=== PATIENT | female | born 1970 ===

== ENCOUNTER 2016-11-12 06:54 | Day surgery (SDC) | payer OTHER ==
[2016-11-11 16:48] LABS: HEMATOCRIT 36.5 % (37.0-47.0); HEMOGLOBIN 11.3 gm/l (12.0-16.0); MEAN CELL VOLUME 84.1 fl (81.0-99.0); RED CELL DISTRIBUTION WIDTH 14.6 % (11.5-14.5)
[2016-11-11 17:40] LABS: ALB/GLOB RATIO 1.1 (>1.0); ALBUMIN 3.9 gm/dL (3.5-5.7); CALCIUM 8.9 mg/dL (8.6-10.3)
--- NOTE | 2016-11-11 19:39 | HP ---
JAVAN BEAR [id number] DATE OF : 1970 HISTORY OF PRESENT ILLNESS: This is a 46-year-old female who presented to the office in April with right lower quadrant pain and a history of ovarian cysts. She does have a total abdominal hysterectomy and a possible left salpingo-oophorectomy in the past. After her hysterectomy she had a postop infection which was a slow postoperative recovery. She is currently still having the right lower quadrant pain. The cyst had been followed since April with ultrasounds, and increased slightly in size from 3.3 cm to 4.7 cm. Impression was an avascular cystic lesion on the right ovary and did not have the classic appearance of an endometrioma and hemorrhagic cyst. A low-grade cystic neoplasm could not be excluded. Her CA-125 level was normal however. OB HISTORY: G-4, P-4, 0-0-4. One normal vaginal delivery and three caesarian sections. TRANSPORT TECHNICIAN HISTORY: Menarche 14 x 28 x 4. No history of STDs. No hormone replacement therapy. PAST MEDICAL HISTORY: Positive for: 1. Diabetes. 2. Obesity. 3. Hypercholesterolemia. 4. Hypertension. ALLERGIES: Iron ?, some form of antibiotic, patient is unsure which PAST SURGICAL HISTORY: 1. Cholecystectomy. 2. Total abdominal hysterectomy, with questionable left salpingo-oophorectomy. 3. Caesarian section x 3. SOCIAL HISTORY: Negative. FAMILY HISTORY: Her grandmother had breast and uterine cancer. REVIEW OF SYSTEMS: Negative. PHYSICAL EXAMINATION: GENERAL: An obese female in no acute distress. HEENT: Normal. NECK: Supple. Thyroid not palpable. BREASTS: Soft. No masses. HEART: Regular sinus rhythm. No murmurs. LUNGS: Clear. ABDOMEN: Benign. She has a midline incision noted. PELVIC: External genitalia healthy. Vagina healthy. Cervix pink and nontender. The uterus is surgically absent. The adnexa are negative. IMPRESSION: Chronic pelvic pain and persistent right ovarian cysts. Her last Pap smear was normal. PLAN: Exploratory laparotomy and right salpingo-oophorectomy. I discussed with the patient that if she has pelvic adhesive disease, it may preclude us from identifying the right ovary and removing it, and she understands that that is a possibility.
[~2016-11-12 06:54] MED LIST: CEFAZOLIN SODIUM 2 GRAM DUPLEX 2 G in Premix (D5W) 50 ml 1 EACH IV PRN; LACTATED RINGERS 1,000 ML IV SCH; LIDOCAINE 1% 2 ML VIAL ID PRN
[2016-11-12] MEDS ORDERED: LACTATED RINGERS 1,000 ML IV SCH ×2 (07:00→09:45)
[2016-11-12] MEDS ORDERED: LIDOCAINE 1% 2 ML VIAL ID PRN (07:00)
[2016-11-12] MEDS ORDERED: CEFAZOLIN SODIUM 2 GRAM DUPLEX 2 G in Premix (D5W) 50 ml 1 EACH IV PRN (07:00)
[2016-11-12] MEDS ORDERED: LACTATED RINGERS 1,000 ML ONE (07:38)
[2016-11-12] MEDS ORDERED: IV START KIT ONE (07:38)
[2016-11-12] MEDS ORDERED: CEFAZOLIN SODIUM 2 GRAM PREMIX 100 ML IV ONE (07:55)
[2016-11-12] MEDS ORDERED: ROCURONIUM BROMIDE 10 MG/ML DOSE IV ONE ×3 (08:31)
[2016-11-12] MEDS ORDERED: FENTANYL 100 MCG/2 ML VIAL ONE (08:31)
[2016-11-12] MEDS ORDERED: PROPOFOL 20 ML IV ONE ×3 (08:31→09:30)
[2016-11-12] MEDS ORDERED: LIDOCAINE 2% (MULTI DOSE) 10 ML VIAL ONE ×2 (08:31→09:17)
[2016-11-12] MEDS ORDERED: MIDAZOLAM HCL 1 MG/ML 2ML VIAL ONE ×2 (08:32→08:58)
[2016-11-12] MEDS ORDERED: SPINAL PROCEDURAL TRAY 1 EACH ONE (08:43)
[2016-11-12] MEDS ORDERED: SCOPOLAMINE 1.5 MG/72 HR 1 EACH PATCH TD ONE (08:45)
[2016-11-12] MEDS ORDERED: MORPHINE SULFATE (DURAMORPH) 1 MG/ML 10ML AMP ONE (08:55)
[2016-11-12] MEDS ORDERED: EPHEDRINE SULFATE UD SYR 25 MG 25 MG/5 ML SYRINGE IV ONE (09:21)
[2016-11-12] MEDS ORDERED: DIPHENHYDRAMINE HCL 50 MG/1 ML VIAL ONE (09:31)
[2016-11-12] MEDS ORDERED: ONDANSETRON 4 MG/2ML 2 ML VIAL ONE ×2 (09:31→10:57)
[2016-11-12] MEDS ORDERED: ONDANSETRON 4 MG/2ML 2 ML VIAL IV PRN ×2 (09:34→11:52)
[2016-11-12] MEDS ORDERED: NALOXONE HCL 0.4 MG/ML VIAL IV PRN ×2 (09:34→09:36)
[2016-11-12] MEDS ORDERED: FENTANYL 100 MCG/2 ML VIAL IV PRN (09:34)
[2016-11-12] MEDS ORDERED: ATROPINE SULFATE 0.4 MG/1 ML VIAL IV PRN (09:34)
[2016-11-12] MEDS ORDERED: PROMETHAZINE HCL 25 MG/ML VIAL IM PRN (09:34)
[2016-11-12] MEDS ORDERED: HYDROMORPHONE HCL 1 MG/ML SYRINGE IV PRN (09:34)
[2016-11-12] MEDS ORDERED: EPHEDRINE SULFATE 50 MG/ML 1ML VIAL IV PRN (09:36)
--- NOTE | 2016-11-12 10:16 | PCMBPN ---
Brief Post Op Note: Date of Procedure: 11/12/16 Start Time: Preoperative Diagnosis: 1. right ovarian cyst, chronic pelvic pain Postoperative Diagnosis: 1. right ovarian cyst, chronic pelvic pain, pelvic adhesive disease Procedure: exploratory laparotomy, aspiration of right ovarian cyst Surgeon: Saul Laboy Assist:dr zarate Anesthesia: mr jones, spinal Findings: surgical absence of uterus, multiple pelvic adhesions, right ovary covered with adhesions and densely adherent to lateral pelvic wall, 2x4cm cystic area superior to right ovary, left adnexa not seen, right ovarian cyst aspirated of 3cc clear colorless fluid, then blood tinged. Condition: stable Complications: none IV Fluids: mLs of LR Urine Output: clear yellow urine 190 mLs Estimated Blood Loss: 20 mLs Tourniquet Time: N/A Specimens: cyst aspirate Implants: Drains: N/A closure scotty patient tolerated procedure well and was returned to recovery room in stable condition with echeverria draining clear yellow urine.
[2016-11-12] MEDS ORDERED: PROMETHAZINE HCL 25 MG/ML VIAL ONE (11:05)
[2016-11-12] MEDS ORDERED: METOCLOPRAMIDE HCL 5 MG/ML 2ML VIAL ONE (11:40)
[2016-11-12] MEDS ORDERED: METOCLOPRAMIDE HCL 5 MG/ML 2ML VIAL IV ONE (11:45)
[2016-11-12] MEDS ORDERED: MAG HYDROX/AL HYDROX/SIMETH 30 ML UDCUP PO PRN (11:52)
[2016-11-12] MEDS ORDERED: BLISTEX LIPSTICK 1 EACH TP PRN (11:52)
[2016-11-12] MEDS ORDERED: MAGNESIUM HYDROXIDE/AL HYDROX 30 ML UDCUP PO PRN (11:52)
[2016-11-12] MEDS ORDERED: DIPHENHYDRAMINE HCL 25 MG CAPSULE PO PRN (11:52)
[2016-11-12] MEDS ORDERED: ACETAMINOPHEN 325 MG TABLET PO PRN (11:52)
[2016-11-12] MEDS ORDERED: DOCUSATE SODIUM 100 MG CAPSULE PO PRN (11:52)
[2016-11-12] MEDS ORDERED: MENTHOL/CETYLPYRD 1 EACH LOZENGE PO PRN (11:52)
--- NOTE | 2016-11-12 12:16 | OP ---
Radha Yusuf DATE: 11/12/2016 NAME OF OPERATION: Exploratory laparotomy and aspiration of right ovarian cyst. PREOPERATIVE DIAGNOSIS: Right ovarian cyst and chronic pelvic pain. POSTOPERATIVE DIAGNOSIS: Right ovarian cyst, chronic pelvic pain, and extensive pelvic adhesive disease. SHEET METAL SHOP FOREMAN: Dr. Saul Avila CONSTRUCTION SAFETY CONSULTANT: Dr. Fuchs. ANESTHESIA: Mr. Calvovez, Spinal. DESCRIPTION OF PROCEDURE: Dictation begins with the patient in the supine position with a Desai draining clear yellow urine. The abdomen was prepared with Duraprep and draped in the usual manner for pfannenstiel incision. After a timeout was performed a knife was used to make a pfannenstiel incision through the skin. The incision was then carried down through the subcutaneous tissue to the rectus abdominis fascia which was nicked with the knife and carried laterally with Granados scissors. All bleeding points were clamped with Loree's and bovied. The superior portion of the fascia was grasped with Swapna clamps. The median raphe divided with a knife and a similar procedure was performed on the lower end of the incision. The peritoneum was identified, entered by blunt dissection using a finger, and then stretched laterally. Findings included multiple and extensive pelvic adhesive disease involving the right ovary, the area in the cul-de-sac where the hysterectomy had been performed and in the left lateral pelvic wall. The bowel was packed back with three moist laps and Nancy retractors were used for retraction. The right ovary was identified, however, it was densely adherent to the right peritoneal surface and pelvis and then covered with adhesions, however, it appeared to be normal size. Superior and slightly lateral to it was a cyst which measured approximately 2 x 4 cm and bisected by the round ligament. Adhesions around the right round ligament were lysed using Metzenbaum scissors and then a needle was placed into the cyst partially collapsing it and removing approximately 3 mL of clear colorless fluid at the onset which then became blood tinged. This was sent for cytology and cell block. Because the right ovary was densely adherent to the lateral pelvic wall and a portion of the cul-de-sac I could not get my examining hand around the posterior surface of it. Oophorectomy was abandoned. All bleeding points were bovied resulting in complete hemostasis and at this point the exploratory portion of the laparotomy was concluded. The three lap pads were removed. Now with sponge and instrument count reported as correct and complete hemostasis the rectus abdominis muscle was reapproximated with 1 Chromic interrupted suture x2 and then the fascia was closed in right and left halves with 1 Vicryl continuous sutures locking the first stitch on either side. The fat was closed with 1 Chromic interrupted sutures x4 and then all other bleeding points were bovied prior to closer. The skin was closed with scotty. Estimated blood loss of the procedure was 20 mL. Patient tolerated procedure well and was returned to recovery room in stable condition with a Desai draining clear yellow urine. FINAL DIAGNOSES: 1. Right ovarian cyst which was collapsed with the aspiration. 2. Chronic pelvic pain. 3. Extensive pelvic adhesive disease. JOB: [id number]
[2016-11-12] MEDS ORDERED: PUMP TUBING ONE (13:51)
[2016-11-12] MEDS: LACTATED RINGERS 1,000 ML IV SCH ×2 (13:54→22:03)
[2016-11-12] MEDS: HYDROMORPHONE HCL 1 MG/ML SYRINGE IV PRN (19:26)
[2016-11-12] MEDS: GLIMEPIRIDE 4 MG TABLET PO SCH (22:07)
[2016-11-13] MEDS: HYDROMORPHONE HCL 1 MG/ML SYRINGE IV PRN ×2 (01:43→02:54)
[2016-11-13] MEDS: LACTATED RINGERS 1,000 ML IV SCH ×3 (05:53→22:09)
[2016-11-13 06:21] LABS: HEMATOCRIT 32.5 % (37.0-47.0); HEMOGLOBIN 10.3 gm/l (12.0-16.0)
--- NOTE | 2016-11-13 06:57 | PDOC43 ---
- Subjective Subjective: Reports Flatus, Reports Pain Tolerable, Reports Tolerating PO Clear , Reports Tolerating PO Regular, Denies Nausea, Denies Vomiting, Denies Fever - Objective Vital Signs Temperature 98.9 F 11/13/16 00:02 Pulse Rate 85 11/13/16 00:02 Respiratory Rate 18 11/13/16 01:49 Blood Pressure 129/56 11/13/16 00:02 O2 Saturation by Pulse Oximetry 97 11/13/16 01:48 Oxygen Delivery Method Nasal Cannula Oxygen Flow Rate 1 Laboratory 11/13/16 05:30 11/12/16 11/12/16 11/12/16 16:45 10:10 07:26 POC Capillary Glucose 130 H 126 H 172 H Active Medication Orders Category Date Time Status Acetaminophen [Tylenol] Med 11/12/16 11:52 Active 325 - 650 mg PO Q4H PRN Diphenhydramine HCl [Benadryl] Med 11/12/16 11:52 Active 25 mg PO Q6H PRN Docusate Sodium [Colace] Med 11/12/16 11:52 Active 100 mg PO BID PRN Ephedrine Sulfate Med 11/12/16 09:36 Active 5 - 10 mg IV Q5M PRN Glimepiride [Amaryl] Med 11/12/16 21:00 Active 4 mg PO BID Hydromorphone HCl [Dilaudid] Med 11/12/16 09:36 Active 0.5 - 2 mg IV Q1H PRN Ibuprofen [Motrin] Med 11/13/16 10:23 Active 800 mg PO Q6H PRN LR 1,000 ml Med 11/12/16 11:52 Active Lactated Ringers 1,000 ml IV 125 mls/hr Lip [place] [Blistex] Med 11/12/16 11:52 Active 1 each TP PRN PRN Lisinopril [Prinivil] Med 11/13/16 09:00 Active 10 mg PO DAILY Magnesium Hydroxide/Al Hydrox [Maalox] Med 11/12/16 11:52 Active 30 ml PO Q4H PRN Magnesium/Al Hydrox/Simeth [Maalox Plus] Med 11/12/16 11:52 Active 30 ml PO Q4H PRN Menthol/Cetylpyridinium [Cepacol] Med 11/12/16 11:52 Active 1 each PO PRN PRN Naloxone HCl [Narcan] Med 11/12/16 09:36 Active 0.04 - 0.4 mg IV Q5M PRN Ondansetron 4 mg/2ml Vial [Zofran] Med 11/12/16 11:52 Active 4 mg IV Q4H PRN Oxycodone HCl/Acetaminophen [Percocet 5/325] Med 11/13/16 10:23 Active 1 - 2 tab PO Q4H PRN Sodium Chloride 0.9% Flush [Normal Saline 10ml Flush] Med 11/12/16 11:52 Active 10 - 50 ml IV PRN PRN Intake and Output 11/11/16 11/12/16 11/13/16 23:59 23:59 23:59 Intake Total 2676 1927 Output Total 1200 1300 Balance 1476 627 General: Afebrile, No Acute Distress Lungs: Clear to Auscultation Bilaterally, Normal Air Movement Abdomen: Soft, Non-Distended, Normal Bowel Sounds, Other (passed flatus, no bowel movement yet) Wound CALL OR CONTACT CENTRE OPERATOR: Dressing in Place, Dressing Clean/Dry/Intact, Well Approximated, Rian Intact, No Drainage, No Erythema, No Rash, No Edema Genitourinary: Indwelling Urinary Cath Extremities: No Tenderness Psych/Mental Status: Normal Affect, Normal Mood - Disposition: Disposition: Stable (discontinue echeverria)
[2016-11-13 07:40] LABS: ALB/GLOB RATIO 1.1 (>1.0); ALBUMIN 3.2 gm/dL (3.5-5.7); CALCIUM 8.4 mg/dL (8.6-10.3)
[2016-11-13 08:20] VITALS: BMI 47.8
[2016-11-13] MEDS: FERROUS SULFATE (65 Fe) 325 MG TABLET PO SCH (08:31)
[2016-11-13] MEDS: GLIMEPIRIDE 4 MG TABLET PO SCH ×2 (08:31→20:52)
[2016-11-13] MEDS: LISINOPRIL 10 MG TABLET PO SCH (08:31)
[2016-11-13] MEDS: OXYCODONE/ACETAMINOPHEN 5/325 MG TABLET PO PRN ×3 (08:43→22:14)
[2016-11-13] MEDS ORDERED: IBUPROFEN 800 MG TABLET PO PRN (10:23)
[2016-11-14] MEDS: LACTATED RINGERS 1,000 ML IV SCH (06:29)
[2016-11-14] MEDS: OXYCODONE/ACETAMINOPHEN 5/325 MG TABLET PO PRN (07:24)
[2016-11-14] MEDS: FERROUS SULFATE (65 Fe) 325 MG TABLET PO SCH (08:55)
[2016-11-14] MEDS: LISINOPRIL 10 MG TABLET PO SCH (08:55)
[2016-11-14] MEDS: GLIMEPIRIDE 4 MG TABLET PO SCH (08:55)
[2016-11-14 11:56] VITALS: BP 112/67
--- NOTE | 2016-11-14 13:29 | PDOC5 ---
Hospital Course: ADMIT DATE: DISCHARGE DATE: 11/14/16 ADMISSION DIAGNOSES: right ovarian cyst, obesity, hypertension, diabetes PROCEDURES: exploratory laparotomy, aspiration of right ovarian cyst HISTORY OF PRESENT ILLNESS: 46 year old presenting with right lower quadrant pain and history of right ovarian cyst HOSPITAL COURSE: The patient underwent an exploratory laparotomy with aspiration of right ovarian cyst. remainder of her hospital course was uneventful with exception of anemia. nurse in charge of patient thought ms stephen may be prone to sleep apnea. By day of discharge the patient is ambulating, eating, voiding, and passing flatus without difficulty. Pain is controlled. - Objective General: Afebrile, No Acute Distress Lungs: Clear to Auscultation Bilaterally, Normal Air Movement Abdomen: Soft, Non-Distended, Normal Bowel Sounds, Other (passed flatus, no bowel movement yet), No Tenderness, No Distention Wound MANAGER PROVIDER RELATIONS: Dressing in Place, Dressing Clean/Dry/Intact, Well Approximated, Rian Intact, No Drainage, No Erythema, No Rash, No Edema Genitourinary: Other (viding without difficulty) Extremities: No Tenderness Psych/Mental Status: Normal Affect, Normal Mood - Discharge Diagnosis (1) Right ovarian cyst Status: Acute (2) Pelvic adhesive disease Status: Acute (3) Diabetes Qualifiers: Diabetes mellitus type: type 2 Diabetes mellitus complication status: without complication Status: Acute (4) Anemia Qualifiers: Anemia type: unspecified type Qualifier Code: (D64.9) Anemia, unspecified Status: Acute (5) Hypertension Qualifiers: Hypertension type: essential hypertension Qualifier Code: (I10) Essential (primary) hypertension Status: Acute (6) Obesity Qualifiers: Obesity type: unspecified obesity type Status: Acute (7) Pelvic pain Status: Acute - Discharge Plan Condition: Stable Disposition: Home Additional Instructions: no heavy lifting, may drive a car in one week, office visit one week for staple removal, sleep medicine referral, analgesics as needed, take prescribed meds as written. Prescriptions: Ampicillin Trihydrate [Ampicillin 500 mg capsule] 500 mg PO QID #40 cap Ibuprofen [Motrin] 800 mg PO Q8H PRN #30 tablet PRN Reason: Pain FERROUS SULFATE (65 Fe) [IRON FERROUS SULFATE 325 MG TABLET (SHF)] 325 mg PO DAILY #30 tab Oxycodone HCl/Acetaminophen [PERCOCET 5/325 MG TABLET (SHF)] 1 - 2 tab PO Q4H PRN #14 tablet PRN Reason: Pain (Moderate)
--- NOTE | 2016-11-16 11:36 | SURGPATH ---
[facility] [address] [place] [id number] Patient Name: JAVAN BEAR MR#: [id number] : 1970 Gender: F Specimen #: [id number] Collected: 11/12/2016 Received: 11/15/2016 Reported: 11/16/2016 Submitting Phys: REGAN VASQUEZ I Copy To Phys: [facility] Clinical History / Pre-Operative Diagnosis: Right ovarian cyst Specimen Source / Surgical Procedure Performed: Right Ovarian Cyst Fluid Interpretation: RIGHT OVARIAN CYST FLUID: - BLOOD AND INFLAMMATORY CELLS, NO MALIGNANT CELLS IDENTIFIED Electronically Signed Out Michael Lakhani M.D. Gross Description: Received: 25mL of slightly cloudy red fluid with red fragment in Cyto-Lyt. Prepared: 1 double fixed cyto-spin and 1 cell block. CB: Brown-red tissue fragment measuring 1.7x2.0x0.4cm submitted for cell block. Microscopic Description: The cytospin preparations and cell block shows blood and inflammatory cells. There are no atypical cytologic features identified. 1: 35720, 86533 N83.20
== END 2016-11-14 14:55 | disposition home or self-care (01) ==
LOC: SDC 06:54 → MS 13:00 → SDC 11-14 14:55
PROVIDERS: ATTEND Obstetrics & Gynecology
PROC: 0W9N0ZZ Drainage of Female Perineum, Open Approach (ICD-10-PCS; principal; 2016-11-12)
DX: N83.201 Unspecified ovarian cyst, right side (principal); N73.6 Female pelvic peritoneal adhesions (postinfective); G89.29 Other chronic pain; R10.2 Pelvic and perineal pain; I10 Essential (primary) hypertension; E11.9 Type 2 diabetes mellitus without complications; D64.9 Anemia, unspecified; E66.9 Obesity, unspecified; E78.00 Pure hypercholesterolemia, unspecified
CPT/HCPCS: 58805; 84703; 85027; 80053; A9270 ×6; J1200; J1170; J3010; J2274; J2550; J2765; J2250 ×2; J2405 ×3; J7120 ×3; J0690